=== PATIENT | male | born 1970 | race Caucasian/White ===

== ENCOUNTER 2017-05-03 22:37 | Emergency (ER) | payer SELFPAY ==
[~2017-05-03] VITALS: Ht 167.6 cm; Wt 80.3 kg
[2017-05-03 22:41] VITALS: Ht 167.6 cm; Wt 80.3 kg
== END 2017-05-04 01:07 | disposition left against medical advice (07) ==
LOC: E/R 22:37
DX: Z53.21 Procedure and treatment not carried out due to patient leaving prior to being seen by health care provider (principal)
CPT/HCPCS: 93005

== ENCOUNTER 2017-07-14 17:10 | Inpatient (IN) | END 2017-07-17 21:55 | disposition home or self-care (01) | DRG 439 ==

== ENCOUNTER 2019-01-14 15:13 | Emergency (ER) | payer MEDICAID, OTHER ==
[~2019-01-14] VITALS: Ht 162.6 cm; Wt 80.6 kg
[~2019-01-14 15:13] MED LIST: ATOR40TA68 PO; BENA10TA4 PO; FENO145T37 PO; FENO200 PO; LANT3I SC; LIPA1CAP2 PO; LOPE2CAP PO; METF100010 PO; NOVO3I SC; NOVO7030 SC; OMEG-135 PO; OMEG-157 PO; ONDA4TAB14 PO
[2019-01-14 15:23] VITALS: Ht 162.6 cm; Wt 80.6 kg
[2019-01-14] MEDS ORDERED: SOD CHLORIDE 0.9% 810 ML IV ONE (15:30)
[2019-01-14] MEDS ORDERED: LOPERAMIDE 2 MG CAP PO ONE (16:30)
[2019-01-14] MEDS ORDERED: LACTATED RINGER'S 1,000 ML IV ONE (16:30)
[2019-01-14] MEDS ORDERED: ONDANSETRON 4 MG INJ IV STA (16:31)
[2019-01-14] MEDS ORDERED: KETOROLAC 15 MG INJ IV STA (17:30)
[2019-01-14] MEDS ORDERED: INSULIN ASPART [NOVOLOG] 3 ML PEN SC ONE (17:30)
[2019-01-14] MEDS ORDERED: ACCU-CHEK XX ONE (18:00)
[2019-01-14 19:21] VITALS: BP 140/79; PULSE 88; RESP 20
[2019-01-14] MEDS ORDERED: INSULIN ASP PROT/ASPART (70/30) PEN SC SCH (19:30)
== END 2019-01-14 19:50 | disposition home or self-care (01) ==
LOC: E/R 15:13
DX: E11.65 Type 2 diabetes mellitus with hyperglycemia (principal); R19.7 Diarrhea, unspecified; R11.10 Vomiting, unspecified; Z79.4 Long term (current) use of insulin; Z87.891 Personal history of nicotine dependence
CPT/HCPCS: 36415; 80048; 80076; 81001; 82962; 83690; 83735; 84100; 85025; 96361; 96372; 96374; 96375; J1815; J1817; J1885; J2405; J7030; J7120; Z7502; Z7610